=== PATIENT | female | born 1960 | race Caucasian/White ===

== ENCOUNTER → 2017-06-07 | Outpatient (CLI) | payer OTHER ==
--- NOTE | 2017-06-10 06:08 | RADIOLOGY REPORT PS360 ---
MRI-L-SPINE W/O, MRI-3D RENDERING/MYELOGRAM HISTORY: LUMBAR NEURALGIA bilateral hip pain right leg and foot pain 3 months Patient Age: 56 years: Female Ordering Physician: Ashok Kong MD TECHNIQUE: Sagittal STIR, T1, T2, axial T1 and T2. On 1.5T Siemens wide bore MRI. 3-D MR myelogram image set obtained & performed on MRI workstation. Additional sagittal thin section T2 weighted dataset obtained from this latter acquisition as well (---76 CPT) COMPARISON :Plain films lumbar spine June 11, 2013 FINDINGS The vertebral bodies show no compression fractures or lesions. Multilevel degenerative disc changes. L5/S1. Degenerative disc space narrowing. Anterior disc bulge. Posteriorly only scant diffuse bulge slightly more evident to the left foramen. This along with mild/moderate facet hypertrophy yields mild/moderate left foraminal encroachment more so than right L4/5 asymmetric disc space narrowing most on right with Reactive endplate changes most evident to the right about the narrowed disc. Mild posterior hypertrophic endplate ridging associated Also associated mild levoscoliosis at this level due to the disc space narrowing on right..- . This Diffuse spondylosis disc bulge most evident to the right encroaching upon right foramen and continuing lateral to the right foramen. Generous facet hypertrophy most evident the right. Features yield moderate right foraminal encroachment L3/4 . Foraminal disc bulge. Slight disc space narrowing to the right. Moderate facet arthropathy/hypertrophy. Mild bilateral foraminal encroachment most evident to the right on L2/3. Slight loss disc hydration and scant disc narrowing. Asymmetric disc bulge most pronounced through the left foramen. Generous disc bulge seen encroaching upon the left foramen. Yields Moderate left foraminal encroachment. L1/2. Disc intact disc space maintained nor foramen widely patent. T11/12 and T12/L1 disc intact as appears normal ending at L1/2 3-D myelogram image set shows spinal stenosis L4/5. Tapering of the spinal canal most evident L4/5 with indentation upon thecal sac more evident on right than left.. L3/4. Slight indentation upon the right aspect of thecal sac with less filling of the exiting nerve roots right as well as left at this level. L2/3 prominent indentation upon the anterior left thecal sac to the leftward disc bulge . Prominent extrarenal pelvis with what appears to be mild hydronephrosis bilaterally. This appearance may be exaggerated due to para parapelvic cyst IMPRESSION:.............. 1.... Multilevel Degenerative Disc Changes & Facet Hypertrophy. Require correlation but most notable findings possibly contributing to RIGHT leg pain: L4/5: moderate right foraminal encroachment. Mild central canal stenosis. L3/4: disc bulge most evident towards right foramen. Borderline central canal stenosis 2.... Degenerative changes at each level summarized below: L4/5: Disc space narrowing most evident to right. Diffuse disc bulge most evident towards right foramen. Generous facet hypertrophy most evident on right.. Resulting encroachment right foramen> left.. . Mild Central Canal Stenosis Mild levoscoliosis at this level L3/4. Diffuse disc bulge most evident encroaching upon right foramen. Borderline/Mild central canal stenosis L1/2. Asymmetric disc bulge most pronounced at left foramen,. Moderate left foraminal encroachment L5/S1. Disc narrowing . Mild diffuse degenerative disc bulge w/ facet hypertrophy yields moderate left foraminal encroachment> right 3.... Incidental Note.: Prominent extrarenal pelvis with Mild Hydronephrosis bilaterally.* Warrants correlation. Recommend urinalysis correlation.. Consider CT urology protocol.
== END ==
LOC: RAD 07:50
DX: M54.16 Radiculopathy, lumbar region (principal)